=== PATIENT | male | born 1965 | race Caucasian/White ===

== ENCOUNTER 2024-03-30 15:44 | Emergency (ER) | payer BC, SELFPAY ==
[2024-03-30 15:49] VITALS: BP 135/97
--- NOTE | 2024-03-30 18:38 | ED.GENMED ---
History of Present Illness
General
Chief Complaint: Musculo-Skeletal Complaint
Source: patient
Time Seen by Provider: 03/30/24 18:00
Travel History
Have you had any contact with someone who has COVID-19?: No
Do you have any symptoms of coronavirus? Fever > 100 degrees, chills, cough, shortness of breath, sore throat, loss of taste or smell, muscle aches, or headache?: No
History of Present Illness
History of Present Illness:
58-year-old male with past medical history of hypertension, hyperlipidemia and WPW presenting to the emergency department for evaluation of right calf pain over the last couple of weeks stating that initially felt pain to the proximal portion of the
gastrocnemius after he was walking down a set of stairs stating he a popping sensation. The calf started to feel little bit better but states he had been doing some hard work for his job which she believes aggravated the affected area but was
concerned when he started to feel a warming sensation last night and was concerned for possible DVT. Patient has no other risk factors for DVT. He has been using compression sock on the affected right leg. He denies any chest pain or shortness of
breath. No other concerns.
Past History
Past History
ED Past Medical History: HTN and Hypercholesterolemia
ED Past Surgical History: Cardiac
Social History
Tobacco: Former smoker
Alcohol: None
Drug: None
Personal:
Living: with family
Employment: Employed
Review of Systems
Review of Systems
All Other Systems: ROS reviewed and negative except as documented in HPI and ROS
Phy Exam
Physical Exam
Physical Exam:
GENERAL: Alert , in no apparent distress
EYE: conjunctiva clear
Head: Normocephalic atraumatic
NECK: Supple,
ENT: mmm.
LUNGS: no acute respiratory distress
NEUROLOGICAL: Alert and oriented
SKIN: Warm and dry, skin intact.
MUSCULOSKELETAL: well perfused. No obvious edema to the right lower extremity when compared to the left. Mild tenderness to the proximal gastrocnemius and there is slight ecchymosis along the anterior medial portion of the tib-fib region. Easily
palpable pedal and tibial pulse. Cap refill less than 2 seconds and sensation is grossly intact to light touch
PSYCH: Normal and appropriate interaction.
Scores
Heart Failure Risk
Heart Failure Risk Score: Not Applicable
Heart Score for Chest Pain Patients
STEMI patient?: Not applicable
Withdrawal Assessment of Alcohol
Withdrawal Assessment Completed?: Not applicable
Course
Orders/Labs/Results
Orders:
Orders
03/30/24 15:53
US Legs, Right [US Periph Venous LOWER Ext RT] Urgent
Comment:
Reason For Exam: pain injury
Vital Signs
Initial and Last Documented VS:
Initial Vital Signs
Temp Pulse Resp BP Pulse Ox
97.9 F 68 16 135/97 98
03/30/24 15:49 03/30/24 15:49 03/30/24 15:49 03/30/24 15:49 03/30/24 15:49
Last Documented Vital Signs
Temp Pulse Resp BP Pulse Ox
98.3 F 63 17 126/78 96
03/30/24 19:57 03/30/24 19:57 03/30/24 19:57 03/30/24 19:57 03/30/24 19:57
MDM/Problems Addressed
Differential Diagnosis Includes:
Gastrocnemius or soleus muscle strain, DVT, no concern for fracture
MDM/Problems Addressed:
58-year-old male presenting to the emergency department for evaluation of pain to the gastrocnemius region ongoing for a couple of weeks. Initially improved but pain started again prompting him to come to the ER today. Patient's main concern is
for DVT. Ultrasound ordered to further assess. Patient is otherwise hemodynamically stable. Anticipate discharge following ultrasound.
*Radiology
Radiology exam reviewed: radiology read reviewed
*Pulse Oximetry
Patient hypoxic: no
*Critical Care Note
Total Time (30-74mins, 75-104mins- exclusive of procedures): Not Applicable
Patient Management
Escalation/DeEscalation of care consider admission/obs:
Patient's ultrasound is negative for DVT. He will follow-up with primary care provider and Ortho as needed.
ED Attending Note
-
Portions of this chart may have been created with voice recognition software.� Occasional wrong word or��sound alike� substitutions may have occurred due to the inherent limitations of voice recognition software.
Discharge Plan
Departure
Patient Disposition: Home (Routine Discharge)
Date of Disposition: 03/30/24
Time of Disposition: 21:23
Patient with high blood pressure during this ER visit?: No
Discharge Problem:
Strain of muscle of posterior right lower leg
Instructions: Lower Extremity Muscle Strain (DC)
Prescriptions:
No Action
Flexeril
PRN (Reason: as needed)
Hydrochlorothiazide
Patient Comments:
stopped taking as of sat 01/07/12
Naprosyn
PRN (Reason: as needed)
Referrals:
Seun Gerber MD [Family Provider] -
Interventions
Interventions:
*Risk Screen - Suicide Last Done: 03/30/24 18:15
*General Assessment Last Done: 03/30/24 18:15
*Neglect/Abuse Screening Last Done: 03/30/24 18:15
ED- Fall Risk Assessment Last Done: 03/30/24 18:34
*ED COVID-19 Vaccine History Last Done: 03/30/24 15:49
ED-Musculoskeletal Assessment Last Done: 03/30/24 18:15
Discharge Date and Time
Print Language: TELUGU
[2024-03-30 19:57] VITALS: BP 126/78
[2024-03-30 21:34] VITALS: BP 126/84
== END 2024-03-30 21:34 | disposition home or self-care (01) ==
LOC: EMR 15:44
PROVIDERS: EMERGENCY PHYSICIAN Emergency Medicine; FAMILY PHYSICIAN Family Medicine
DX: S86.811A Strain of other muscle(s) and tendon(s) at lower leg level, right leg, initial encounter (principal); S80.11XA Contusion of right lower leg, initial encounter; X58.XXXA Exposure to other specified factors, initial encounter; Y93.89 Activity, other specified; M79.661 Pain in right lower leg; I10 Essential (primary) hypertension; E78.00 Pure hypercholesterolemia, unspecified; Z87.891 Personal history of nicotine dependence; I45.6 Pre-excitation syndrome
CPT/HCPCS: 99284; 93971